=== PATIENT | female | born 1990 | race Caucasian/White ===

== ENCOUNTER 2017-02-08 08:33 | Emergency (ER) | payer OTHER ==
[2017-02-08 10:31] LABS: ABSOLUTE NEUTROPHIL COUNT 6.7 K/mm3 (1.8-7.7); BASO % 0.3 % (0.2-1.0); EOS % 0.4 % (0.9-2.9); HEMATOCRIT 40.9 % (37.0-47.0); HEMOGLOBIN 13.8 gm/l (12.0-16.0); IMM NEUT% 0.2 % (0-1); LYMPH # 3.1 (1.0-4.8); LYMPH % 29.4 % (15-45); MEAN CELL VOLUME 90.1 fl (81.0-99.0); MEAN CORPUSCULAR HEMOGLOBIN 30.4 pg (27.0-31.0); MEAN CORPUSCULAR HGB CONC 33.7 g/dl (33.0-37.0); MEAN PLATELET VOLUME 8.9 fl (7.4-10.4); MONO # 0.6 (0.0-0.8); MONO % 5.6 % (4-12); NEUT % 64.1 % (43-75); PLATELET COUNT 254 K/mm3 (130-400); RED CELL DISTRIBUTION WIDTH 12.6 % (11.5-14.5)
[2017-02-08 10:32] LABS: SPECIFIC GRAVITY 1.015 (1.001-1.030); URINE APPEARANCE CLEAR; URINE BILIRUBIN NEGATIVE (NEGATIVE); URINE BLOOD NEGATIVE (NEGATIVE); URINE COLOR YELLOW; URINE GLUCOSE (UA) NEGATIVE (NEGATIVE); URINE LEUKOCYTE ESTERASE NEGATIVE (NEGATIVE); URINE NITRITE NEGATIVE (NEGATIVE); URINE PROTEIN NEGATIVE (NEGATIVE); URINE UROBILINOGEN NORMAL (0-1 mg/dl)
[2017-02-08 10:47] LABS: ALB/GLOB RATIO 1.5 (>1.0); ALBUMIN 4.1 gm/dL (3.5-5.7); CALCIUM 8.9 mg/dL (8.6-10.3)
[2017-02-08] MEDS ORDERED: LACTATED RINGERS 1,000 ML ONE (10:48)
[2017-02-08] MEDS ORDERED: ONDANSETRON 4 MG/2ML 2 ML VIAL ONE (10:48)
[2017-02-08] MEDS ORDERED: MORPHINE SULFATE 4 MG/ML SYRINGE ONE (10:48)
--- NOTE | 2017-02-08 11:15 | US ---
ABDOMINAL-LIMITED: 02/08/2017 10:19 AM CLINICAL HISTORY: Epigastric pain for 2 days. STUDY: Limited right upper quadrant ultrasound COMPARISON: none FINDINGS: Gallbladder: Wall thickness: Normal Cholelithiasis: none Pericholecystic Fluid: none Sonographic [place]'s Sign: negative Bile ducts: Common bile duct measures 2 mm. Limited visualized Liver and RUQ structures: normal IMPRESSION: No evidence of cholelithiasis or acute cholecystitis. Findings were called to Dr. Nguyen at approximately 1108 hours on 02/07/2017.
--- NOTE | 2017-02-08 12:15 | RAD ---
02/08/2017 12:08 PM CHEST - 2 VIEWS History: Sternal chest pain. Comparison: 08/05/2008 Findings: Two views of the chest are obtained. The lungs are clear with out effusion or pneumothorax. The cardiomediastinal silhouette is unremarkable.. The osseous structures are intact.. IMPRESSION: No acute intrathoracic process.
== END 2017-02-08 13:26 | disposition home or self-care (01) ==
LOC: ED 08:33
DX: R07.9 Chest pain, unspecified (principal); R10.13 Epigastric pain; J45.909 Unspecified asthma, uncomplicated